=== PATIENT | female | born 1995 | race Caucasian/White ===

== ENCOUNTER 2016-10-18 20:04 | Emergency (ER) | payer SELFPAY ==
[2016-10-18 20:11] VITALS: BP 132/84; PULSE 113; TEMP 100; BMI 22.3
--- NOTE | 2016-10-18 20:22 | PDOC ---
History of Present Illness - General History Source: Patient Exam Limitations: No Limitations - History of Present Illness Initial Comments: 10/18/16 20:36 The patient is a 21 year old female, with no significant past medical history, who presents to the emergency department complaining of sore throat for 1 day. The patient reports reports associated cough, subjective fever, and body aches. She states she has been taking ibuprofen for her fever every 4 hours with no relief. The patient reports weakness secondary to cold like symptoms. The patient denies any rhinorrhea, congestion, or shortness of breath. The patient denies any recent travel or sick contacts. PAST MEDICAL HISTORY: No significant history PAST SURGICAL HISTORY: No significant history FAMILY HISTORY: No pertinent history SOCIAL HISTORY: Pt lives with family and is employed. Non smoker. No ETOH or recreational drug use. MEDICATIONS: reviewed ALLERGIES: As per nursing notes General: Yes: +fever, +body aches, +weakness. No chills, no weight loss HEENT: Yes: +sore throat. No change in vision. No ear pain CardioVascular: No chest pain or shortness of breath Respiratory: Yes: +cough. No wheezing. Gastrointestinal: No nausea, vomiting, diarrhea or constipation, No rectal bleeding Genitourinary: No dysuria, hematuria, or frequency Musculoskeletal: No joint or muscle swelling Neurologic: No headache, vertigo, dizziness or loss of consciousness Psychiatric: No depression Skin: No rashes or easy bruising Endocrine: No increased thirst or abnormal weight change Allergic: No skin or latex allergy All other systems reviewed and normal General: Well-nourished well-developed individual, no acute distress HEENT: Erythema and vascular lesions of the posterior pharynx. Tonsils are enlarged bilaterally but no exudates. Neck: Bilateral submandibular lymphadenopathy. Supple, no meningeal signs. Eyes::Pupils equal reactive and round, extraocular motion intact Chest: Nontender to palpation Cardiac: S1-S2 normal, regular rate and rhythm, no murmurs rubs or gallops Respiratory: Lungs clear to auscultation bilateral Abdomen: Soft, nondistended, normal bowel sounds, nontender to palpation diffusely Extremities: Warm, dry, no cyanosis, clubbing, or edema Skin: No rashes Neuro: Alert and oriented x3, nonfocal exam, grossly intact, normal gait Psych: Normal mood and affect <Radames Varner - Last Filed: 10/18/16 21:02> - General History Source: Patient Exam Limitations: No Limitations - History of Present Illness Initial Comments: 10/18/16 21:06 A portion of this note was documented by scribe services under my direction. I have reviewed the details of the note, within reason, and agree with the documentation. The case summary and management plan written by me. Rapid strep positive for strep pharyngitis Assessment and plan: This is a 21-year-old female comes in complaining of body ache fevers and sore throat. Patient has a history of pharyngitis and strep in the past. Patient had a rapid strep done that was positive for strep pharyngitis. Patient given Bicillin L-A IM and discharged home. Patient is fully treated for the strep pharyngitis <Noel Beaulieu I - Last Filed: 10/18/16 21:08> - General Chief Complaint: Cold Symptoms Stated Complaint: SORE THROAT AND FEVER Time Seen by Provider: 10/18/16 20:21 Past History <Radames Varner - Last Filed: 10/18/16 21:02> - Past Medical History Other medical history: PT DENIES - Psycho/Social/Smoking Cessation Hx Anxiety: No Suicidal Ideation: No Smoking History: Never smoked Number of Cigarettes Smoked Daily: 0 Information on smoking cessation initiated: No Hx Alcohol Use: No Drug/Substance Use Hx: No Substance Use Type: Alcohol <Noel Beaulieu I - Last Filed: 10/18/16 21:08> - Past Medical History Allergies/Adverse Reactions: Allergies Allergy/AdvReac Type Severity Reaction Status Date / Time No Known Allergies Allergy Verified 10/18/16 20:06 Home Medications: Ambulatory Orders NK [No Known Home Medication] 10/18/16 *Physical Exam - Vital Signs Last Vital Signs Temp Pulse Resp BP Pulse Ox 100 F H 113 H 18 132/84 98 10/18/16 20:05 10/18/16 20:05 10/18/16 20:05 10/18/16 20:05 10/18/16 20:05 <Radames Varner - Last Filed: 10/18/16 21:02> - Vital Signs Last Vital Signs Temp Pulse Resp BP Pulse Ox 100 F H 113 H 18 132/84 98 10/18/16 20:05 10/18/16 20:05 10/18/16 20:05 10/18/16 20:05 10/18/16 20:05 <Noel Beaulieu I - Last Filed: 10/18/16 21:08> *DC/Admit/Observation/Transfer - Attestations Scribe Attestion: 10/18/16 20:36 Documentation prepared by Radames Varner, acting as quality engineer medical device for Noel Beaulieu MD. <Radames Varner - Last Filed: 10/18/16 21:02> - Discharge Dispostion Admit: No <Noel Beaulieu I - Last Filed: 10/18/16 21:08> Diagnosis at time of Disposition: Acute streptococcal pharyngitis - Discharge Dispostion Disposition: HOME Condition at time of disposition: Stable - Patient Instructions Printed Discharge Instructions: DI for Strep Throat Additional Instructions: You were given a shot of long-acting penicillin in the emergency room and her fully treated for the strep infection. Tylenol or Motrin as needed for pain or fevers. Return to the emergency department immediately with ANY new, persistent or worsening symptoms. Continue any medications as previously prescribed by your physician. You should follow up with your primary doctor as soon as possible regarding today's emergency department visit. . Please make sure your doctor reviews the results of your emergency evaluation. Thank you for coming to the Emergency Department today for your care. It was a pleasure to see you today. Please note that your evaluation is INCOMPLETE until you follow-up with your doctor.
[2016-10-18] MEDS ORDERED: ACETAMINOPHEN 500 MG TABLET (FP) PO ONE (20:29)
[2016-10-18] MEDS ORDERED: ACETAMINOPHEN 325 MG TABLET (FP) ONE (20:38)
[2016-10-18] MEDS ORDERED: PENICILLIN G BENZATHINE 1,200,000 UNIT/2 ML PFS IM ONE ×2 (21:06→21:13)
== END 2016-10-18 21:17 | disposition home or self-care (01) ==
LOC: FER 20:04
DX: J02.0 Streptococcal pharyngitis (principal)
CPT/HCPCS: 87070; 87077; 87430; 99282-25

== ENCOUNTER 2018-10-20 14:10 | Emergency (ER) | payer OTHER ==
[2018-10-20 14:16] VITALS: BP 137/87; PULSE 86; TEMP 98.2; BMI 21.6
[2018-10-20] MEDS ORDERED: IBUPROFEN 600 MG TABLET (FP) PO ONE ×2 (14:35→14:37)
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
== END 2018-10-20 14:43 | disposition home or self-care (01) ==
LOC: FER 14:10
DX: R51 Headache (principal); W50.0XXA Accidental hit or strike by another person, initial encounter; Y93.89 Activity, other specified; Y92.89 Other specified places as the place of occurrence of the external cause
CPT/HCPCS: 99281-25

== ENCOUNTER 2021-06-05 10:59 | Emergency (ER) | payer OTHER ==
[2021-06-07 13:07] LABS: SARS-CoV-2 NAA Detected (Not Detected)
== END 2021-06-05 12:29 | disposition home or self-care (01) ==
LOC: JVIRT 10:59
DX: R05.9 Cough, unspecified (principal); Z11.52 Encounter for screening for COVID-19
CPT/HCPCS: C9803; Q3014-GT; U0003; U0005